=== PATIENT | male | born 1985 | race Caucasian/White ===

== ENCOUNTER 2020-08-03 04:09 | Emergency (ER) | payer SELFPAY | END 2020-08-03 05:00 | disposition home or self-care (01) | LOC: ERS 04:09 | DX: S63.91XA Sprain of unspecified part of right wrist and hand, initial encounter (principal); W22.8XXA Striking against or struck by other objects, initial encounter | CPT/HCPCS: 96372 ==

== ENCOUNTER 2024-05-01 12:55 | Emergency (ER) | payer SELFPAY, OTHER ==
[2024-05-01 13:33] LABS: #Basophils 0.07 10x3/uL (0.0-0.2); %Basophils 0.6 % (0.0-1.0); %Lymphocytes 30.1 % (21.0-51.0); %Monocytes 7.5 % (0.0-10.0); %Neutrophils 56.5 % (42.0-75.0); Hematocrit 44.1 % (42.0-52.0); Hemoglobin 15.1 g/dL (14.0-18.0); Mean Corpuscular HGB CONC 34.2 g/dL (32.0-36.0); Mean Corpuscular Hemoglobin 30.9 pg (27.0-31.0); Mean Corpuscular Volume 90.4 fL (78.0-98.0); Mean Platelet Volume 10.1 fL (7.4-10.4); Platelet Count 312 10x3/uL (130-400); RBC Distribution Width 12.6 % (11.5-14.5); Red Blood Cell (RBC) Count 4.88 mill/uL (4.70-6.10)
[2024-05-01] MEDS ORDERED: Boostrix 0.5 ML (Tdap) VIAL (>/=7 yrs of age) ONE (13:40)
[2024-05-01] MEDS ORDERED: Morphine 4 MG/ML VIAL ONE (13:40)
[2024-05-01] MEDS ORDERED: Ondansetron PF 4 MG/2 ML Vial ONE (13:40)
[2024-05-01] MEDS ORDERED: Ketorolac Tromethamine 30 MG (1 mL) VIAL ONE (13:40)
[2024-05-01 13:57] LABS: ALT (SGPT) 14 U/L (8-55); AST (SGOT) 19 U/L (5-34); Acetaminophen Less than 10 mcg/mL (Less than 10); Alcohol Less than 10.0 mg/dL (Less than 10); Alkaline Phosphatase 78 U/L (40-110); Anion Gap 10 mmol/L (10-20); BUN (Urea Nitrogen) 12 mg/dL (8.9-20.6); Bilirubin, Total 0.6 mg/dL (0.2-1.2); Calc. Creatinine Clearance 0 mL/min (70-130); Calcium 8.9 mg/dL (7.8-10.44); Carbon Dioxide 24 mmol/L (22-29); Chloride 109 mmol/L (98-107); Estimated GFR 83; Globulin 2.6 g/dL (2.4-3.5); Glucose 87 mg/dL (70-105); Potassium 4.3 mmol/L (3.5-5.1); Protein, Total 6.6 g/dL (6.0-8.3); Salicylate Less than 8.0 mg/dL (Less than 8.0); Sodium 139 mmol/L (136-145)
[2024-05-01] MEDS ORDERED: Iopamidol-370 76% 500 ML MDV (1 ML CHARGE) ONE (15:33)
== END 2024-05-01 15:13 ==
LOC: ERS 12:55
DX: S06.0X0A Concussion without loss of consciousness, initial encounter (principal); S51.012A Laceration without foreign body of left elbow, initial encounter; S70.12XA Contusion of left thigh, initial encounter; S20.212A Contusion of left front wall of thorax, initial encounter; D18.00 Hemangioma unspecified site; V89.2XXA Person injured in unspecified motor-vehicle accident, traffic, initial encounter; Z23 Encounter for immunization
CPT/HCPCS: 12002; 70450; 71045; 71260; 72125; 74177; 80053; 80307; 85025; 90471; 90715; 93005; 96374; 96375; G0390; J1885; J2270; J2405; Q9967